=== PATIENT | female | born 1950 | race Caucasian/White ===

== ENCOUNTER → 2024-02-12 | Outpatient (CLI) | payer MEDICARE, MEDICAID, SELFPAY ==
--- NOTE | 2024-02-12 08:45 | XR_ITS ---
Examination: Screening digital mammography, bilateral Computer aided detection 3-D breast Tomosynthesis, bilateral Date and time of exam: February 12, 2024 0843 hours COMPARISON: Mammograms dating to May 28, 2021 Indication: Screening Technique: Nonmagnified MLO, CC views of the breasts to been obtained, reconstructed from 3-D Tomosynthesis images. R2 computer aided detection program utilized for evaluation of suspicious masses and/or abnormal calcifications. 3-D Tomosynthesis images obtained. Findings: The breasts are heterogeneously dense, which may obscure small masses in breast biopsy marker upper outer left breast with grouped microcalcifications 4 mm focal asymmetry upper right breast MLO view, 2.7 cm from the nipple Impression: BI-RADS Category 0: Incomplete: Need additional imaging evaluation Recommend repeat magnification compression views of microcalcifications upper outer left breast Recommend follow-up spot tomographic views upper outer right breast anterior depth to assess focal asymmetry upper right breast MLO view, 2.7 cm from the nipple
[2024-02-12 09:55] LABS: Thyroid Stimulating Hormone 6.09 uIU/mL (0.55-4.78)
== END | disposition home or self-care (01) ==
LOC: CDIM 08:30 → COPL 08:52
PROVIDERS: Referring Provider Family Medicine; Visit Provider Radiology Diagnostic Radiology
DX: Z12.31 Encounter for screening mammogram for malignant neoplasm of breast (principal); E03.9 Hypothyroidism, unspecified
CPT/HCPCS: 36415; 77063; 77067; 84443

== ENCOUNTER → 2024-04-18 | Outpatient (CLI) | payer MEDICARE, MEDICAID, SELFPAY ==
--- NOTE | 2024-04-18 08:00 | XR_ITS ---
Examination: Diagnostic digital mammography, bilateral Computer aided detection 3-D breast Tomosynthesis, bilateral Date and time of exam: April 18, 2024 0751 hours INDICATIONS: Mammogram February 12, 2024 microcalcifications upper outer left breast, right breast focal asymmetry upper right breast MLO view 2.7 cm from the nipple Technique: Nonmagnified MLO, CC views of the breasts to been obtained, reconstructed from 3-D Tomosynthesis images. R2 computer aided detection program utilized for evaluation of suspicious masses and/or abnormal calcifications. 3-D Tomosynthesis images obtained. Findings: The breasts are heterogeneously dense, which may obscure small masses Grouped suspicious microcalcifications are confirmed 3:00 position left breast separate from the breast biopsy marker Focal asymmetry remains slightly upper right breast MLO view Impression: BI-RADS Category 4: Suspicious for malignancy Suspicious microcalcifications are confirmed 3:00 position left breast, separate from the breast biopsy marker, biopsy is needed to exclude breast carcinoma, these calcifications are amenable to stereotactic breast biopsy Recommend 6 month right mammogram follow-up to document stability of focal asymmetry upper right breast MLO view.
== END | disposition home or self-care (01) ==
LOC: CDIM 07:41
PROVIDERS: PCP Family Medicine; Referring Provider Family Medicine; Visit Provider Family Medicine
DX: R92.343 Mammographic extreme density, bilateral breasts (principal); R92.0 Mammographic microcalcification found on diagnostic imaging of breast
CPT/HCPCS: 77062; 77066; G0279

== ENCOUNTER → 2024-05-16 | Outpatient (CLI) | payer MEDICARE, MEDICAID, SELFPAY ==
[2024-05-15 16:29] LABS: Basophils # (Auto) 0.1 Thou/mm3 (0.0-0.2); Basophils % (Auto) 1 % (0-2.5); Eosinophils # (Auto) 0.2 Thou/mm3 (0.0-0.5); Eosinophils % (Auto) 2 % (0-10); Hemoglobin 12.5 g/dL (12.0-16.0); Immature Granulocytes % (Auto) 1 % (0-0); Immature Granulocytes Auto 0.05 Thou/mm3 (0.00-0.00); Lymphocytes # (Auto) 2.6 Thou/mm3 (1.0-4.8); Lymphocytes % (Auto) 28 % (10-50); Mean Corpuscular HGB Conc 32.9 g/dl (31.0-37.0); Mean Corpuscular Hemoglobin 27.4 pg (25.0-35.0); Mean Corpuscular Volume 83 fL (80-100); Monocytes # (Auto) 0.6 Thou/mm3 (0.0-0.8); Monocytes % (Auto) 6 % (0-12); Neutrophils # (Auto) 5.7 Thou/mm3 (1.8-7.7); Neutrophils % (Auto) 62 % (37-80); Nucleated Red Blood Cell % 0 /100 WBC (0); Platelet Count 291 Thou/mm3 (140-440); RDW Standard Deviation 40.5 fL (36.4-46.3); Red Blood Count 4.57 Miln/mm3 (4.00-5.20); White Blood Count 9.1 Thou/mm3 (3.6-11.0)
[2024-05-15 16:36] LABS: Partial Thromboplastin Time 24.2 Seconds (22.0-36.0); Prothrombin Time 11.1 Seconds (9.0-12.2)
--- NOTE | 2024-05-16 | XR_ITS ---
Examination: Stereotactic guided vacuum assisted left breast biopsy with clip placement Specimen radiograph Date and time of exam:May 16, 2024 1107 hours INDICATIONS: Mammogram April 18, 2024 BI-RADS 4 suspicious microcalcifications 3:00 position left breast Timeout performed, documenting correct patient, order, referring physician, patient's site and reason for procedure, allergies to medications Informed consent provided. Time out performed Technique: The lesion left was localized with a stereotactic apparatus. Local anesthesia was obtained after prepping the skin at the entrance site and applying sterile drape Maximum sterile barrier technique. 6 core biopsies were then obtained, vacuum assisted, stereotactically guided, at the lesion site. Specimens appear adequate. Stereotactic breast marker was introduced at the lesion site Estimated blood loss 2 cc. Patient tolerated the procedure well and appeared in satisfactory and stable condition at completion of the procedure Pathology report to follow Impression: Successful stereotactic breast biopsy as described above. Specimen radiograph contains the biopsied suspicious microcalcifications.
== END | disposition home or self-care (01) ==
LOC: CDIM 09:17
PROVIDERS: Radiology Diagnostic Radiology; PCP Family Medicine; Referring Provider Student in an Organized Health Care Education/Training Program; Visit Provider Student in an Organized Health Care Education/Training Program
DX: D24.2 Benign neoplasm of left breast (principal); R92.0 Mammographic microcalcification found on diagnostic imaging of breast; N60.12 Diffuse cystic mastopathy of left breast; Z01.812 Encounter for preprocedural laboratory examination
CPT/HCPCS: 19081; 36415; 85025; 85610; 85730; A4648; A4649

== ENCOUNTER → 2024-10-22 | Outpatient (CLI) | payer MEDICARE, MEDICAID, SELFPAY ==
[2024-10-22 15:36] LABS: Collection Type, Urine Clean Catch
[2024-10-22 17:42] LABS: Bacteria,Urine Rare; Bilirubin,Urine Negative (Negative); Blood,Urine Negative (Negative); Clarity,Urine Turbid (Clear/Hazy); Color,Urine Lt-Yellow (Lt Yel-Yel); Glucose, Urine Negative (Negative); Ketones,Urine Negative (Negative); Leukocyte Esterase,Urine Positive (Negative); Nitrite,Urine Negative (Negative); PH,Urine 6.5 (5.0-7.0); Protein,Urine Negative (Neg - Trace); RBC,Urine 8 /hpf (0-3); Specific Gravity,Urine 1.011 (1.001-1.035); Squamous Epithelial Cell,Urine 1 /hpf (0-5); Transitional Epi Cells,Urine 1 /hpf (0-5); Urobilinogen,Urine Negative mg/dL (0.0-1.0); WBC,Urine 303 /hpf (0-5)
== END | disposition home or self-care (01) ==
LOC: SLDO 15:21
PROVIDERS: PCP Nurse Practitioner Family; Referring Provider Nurse Practitioner Family; Visit Provider Nurse Practitioner Family
DX: N39.0 Urinary tract infection, site not specified (principal)
CPT/HCPCS: 81001; 87077; 87086; 87186

== ENCOUNTER → 2024-11-11 | Outpatient (CLI) | payer MEDICARE, MEDICAID, SELFPAY ==
[2024-11-11 09:55] LABS: Basophils # (Auto) 0.0 Thou/mm3 (0.0-0.2); Basophils % (Auto) 1 % (0-2.5); Eosinophils # (Auto) 0.2 Thou/mm3 (0.0-0.5); Eosinophils % (Auto) 3 % (0-10); Hematocrit 37.5 % (36.0-46.0); Hemoglobin 12.2 g/dL (12.0-16.0); Immature Granulocytes Auto 0.01 Thou/mm3 (0.00-0.00); Lymphocytes # (Auto) 3.2 Thou/mm3 (1.0-4.8); Lymphocytes % (Auto) 48 % (10-50); Mean Corpuscular HGB Conc 32.5 g/dl (31.0-37.0); Mean Corpuscular Hemoglobin 26.9 pg (25.0-35.0); Mean Corpuscular Volume 83 fL (80-100); Monocytes # (Auto) 0.5 Thou/mm3 (0.0-0.8); Monocytes % (Auto) 8 % (0-12); Neutrophils # (Auto) 2.7 Thou/mm3 (1.8-7.7); Neutrophils % (Auto) 40 % (37-80); Nucleated Red Blood Cell # 0.00 Thou/mm3 (0.00-0.00); Nucleated Red Blood Cell % 0 /100 WBC (0); Platelet Count 273 Thou/mm3 (140-440); RDW Standard Deviation 40.8 fL (36.4-46.3); Red Blood Count 4.53 Miln/mm3 (4.00-5.20); White Blood Count 6.7 Thou/mm3 (3.6-11.0)
[2024-11-11 10:27] LABS: Alanine Aminotransferase 24 U/L (10-49); Albumin, Serum 4.5 gm/dL (3.4-4.8); Albumin/Globulin Ratio 1.9 (1.2-2.2); Alkaline Phosphatase 66 U/L (46-116); Anion Gap 9 (7-16); Aspartate Amino Transferase 30 U/L (0-34); BUN/Creatinine Ratio 11 Ratio (12-20); Bilirubin,Total 0.6 mg/dL (0.3-1.2); Blood Urea Nitrogen 10 mg/dL (9-23); Calcium 10.2 mg/dL (8.3-10.6); Calcium (Corrected) 10.2 mg/dL (8.5-10.1); Carbon Dioxide 29.7 mMol/L (20.0-31.0); Cardiac Risk Estimate 3.6 RATIO (3.7-5.6); Chloride 103 mMol/L (98-107); Cholesterol 171 mg/dL (132-200); Creatinine (Component) 0.9 mg/dL (0.6-1.3); Globulin 2.4 gm/dL (2.3-3.5); Glucose 103 mg/dL (74-106); HDL Cholesterol 47 mg/dL (40-60); LDL Cholesterol,Calculated 77 mg/dL (0-130); Osmolality,Calculated 282 (275-295); Potassium 4.3 mMol/L (3.4-5.1); Sodium 142 mMol/L (136-145); Thyroid Stimulating Hormone 3.98 uIU/mL (0.55-4.78); Total Protein 6.9 gm/dL (5.7-8.2); Triglycerides 233 mg/dL (30-150); eGFR > 60 See Note
== END | disposition home or self-care (01) ==
LOC: COPL 08:45
PROVIDERS: PCP Student in an Organized Health Care Education/Training Program; Referring Provider Student in an Organized Health Care Education/Training Program; Visit Provider Student in an Organized Health Care Education/Training Program
DX: E03.9 Hypothyroidism, unspecified (principal); E78.5 Hyperlipidemia, unspecified
CPT/HCPCS: 36415; 80053; 80061; 82728; 83036; 83540; 83550; 84443; 85025